=== PATIENT | male | born 1945 | race Caucasian/White ===

== ENCOUNTER 2018-03-27 22:07 | Emergency (ER) | payer BC ==
[~2018-03-27] VITALS: Ht 154.9 cm; Wt 114.3 kg
[2018-03-27] MEDS ORDERED: KEFLEX500 M1 PO (22:20)
[2018-03-27] MEDS ORDERED: NORVASC5 MG PO (22:23)
[2018-03-27] MEDS ORDERED: COREG25 MG PO (22:23)
[2018-03-27] MEDS ORDERED: ELIQUIS5 M1 PO (22:23)
[2018-03-27] MEDS ORDERED: PRAVACHOL20 MG PO (22:24)
[2018-03-27] MEDS ORDERED: LEVOXYL50 MCG PO (22:24)
[2018-03-27] MEDS ORDERED: COZAAR100 MG PO (22:24)
[2018-03-27] MEDS ORDERED: NEXIUM40 MG PO (22:24)
[2018-03-27] MEDS ORDERED: FIBER625 MG PO (22:25)
[2018-03-27] MEDS ORDERED: ASPIR-LOW81 MG PO (22:25)
[2018-03-27] MEDS ORDERED: FISH OIL 1,001000 M2 PO (22:25)
[2018-03-27] MEDS ORDERED: COQ-10100 MG PO (22:25)
[2018-03-27] MEDS ORDERED: CENTRUM SILVER1 EAC4 PO (22:25)
[2018-03-27] MEDS ORDERED: ZYRTEC10 M5 PO (22:26)
[2018-03-27 23:00] VITALS: BP 121/84
== END 2018-03-27 23:00 | disposition home or self-care (01) ==
LOC: M.ERS 22:07
DX: S61.217A Laceration without foreign body of left little finger without damage to nail, initial encounter (principal); W26.8XXA Contact with other sharp object(s), not elsewhere classified, initial encounter; Y93.89 Activity, other specified; Y92.89 Other specified places as the place of occurrence of the external cause; Y99.8 Other external cause status